=== PATIENT | female | born 1955 | race Caucasian/White ===

== ENCOUNTER 2018-09-12 07:27 | Emergency (ER) | payer MEDICARE, MEDICAID ==
[~2018-09-12] VITALS: Ht 167.6 cm; Wt 69.1 kg
[~2018-09-12 07:27] MED LIST: ALDACTONE50 MG PO; AMITRIPTYLINE H50 MG PO; CARAFATE1 G/10 ML PO; CELEXA40 MG PO; DURAGESIC1 PATCH .3 TRANSDERM; DURAGESIC1 PATCH .7 TRANSDERM; GABAPENTIN100 MG PO; LEVOTHYROXINE50 MCG PO; MOBIC7.5 MG PO; MORPHINE IMMEDI30 M1 PO; OMEPRAZOLE20 M1 PO; OMEPRAZOLE40 MG PO; ROPINIROLE HCL2 MG PO; TENORMIN50 MG PO; VICTOZA0.6 MG/0.1 SQ; XANAX0.5 MG PO; ZANTAC150 MG PO
[2018-09-12 07:31] VITALS: Ht 167.6 cm; Wt 69.1 kg
[2018-09-12 08:56] LABS: BASOPHILS 0.3 % (0-2); EOSINOPHILS 1.5 % (0-7); HEMATOCRIT 40.3 % (36.0-48.0); HEMOGLOBIN 14.3 g/dL (12-16); IMMATURE GRANULOCYTES 0.3 % (0-5); LYMPHOCYTES 19.1 % (15-50); MCH 31.2 pg (26.0-34.0); MCHC 35.5 g/dL (31.0-37.0); MCV 87.8 fL (80.0-100.0); MEAN PLATELET VOLUME 9.4 fL (7.4-10.4); MONOCYTES 8.5 % (2-11); NEUTROPHILS 70.3 % (40-80); PLATELET COUNT 193 10x3/uL (130-400); RBC 4.59 10x6/uL (4.00-5.40); RDW 13.7 % (11.5-14.5); WBC 9.2 10x3/uL (4.8-10.8)
[2018-09-12 09:12] LABS: ALBUMIN 3.5 g/dL (3.4-5.0); ALKALINE PHOSPHATASE 112 U/L (46-116); ALT (SGPT) 36 U/L (10-68); BILIRUBIN - TOTAL 0.43 mg/dL (0.2-1.3); CALC OSMOLALITY 281 mosm/kg (275-300); CALCIUM 9.1 mg/dL (8.5-10.1); CARBON DIOXIDE 27.1 mmol/L (21.0-32.0); CHLORIDE - SERUM 106 mmol/L (98-107); CREATININE - SERUM 1.2 mg/dL (0.6-1.3); GLUCOSE 93 mg/dL (74-106); PROTEIN - SERUM 6.7 g/dL (6.4-8.2); SODIUM 140 mmol/L (136-145); UREA NITROGEN 20 mg/dL (7-18); eGFR NON AFRICAN AMERICAN 48 mL/min (90-120)
[2018-09-12 09:14] LABS: AMYLASE - SERUM 65 U/L (25-115); LIPASE 264 U/L (73-393); TROPONIN-I < 0.017 ng/mL (0.000-0.060)
[2018-09-12 09:16] LABS: APPEARANCE CLEAR (CLEAR); BILIRUBIN NEGATIVE (NEGATIVE); COLOR YELLOW (YELLOW); GLUCOSE NEGATIVE (NEGATIVE); KETONE NEGATIVE (NEGATIVE); NITRITE NEGATIVE (NEGATIVE); PROTEIN NEGATIVE (NEGATIVE); SPECIFIC GRAVITY 1.015 (1.005-1.020); UROBILINOGEN NORMAL (NORMAL)
[2018-09-12 09:20] LABS: MUCUS <1+ /lpf (NONE SEEN); RED CELLS - URINE 0-5 /hpf (0-5)
[2018-09-12 09:21] LABS: BACTERIA FEW /hpf (NONE SEEN); WHITE CELLS - URINE 0-5 /hpf (0-5)
[2018-09-12 11:02] VITALS: BP 145/74
== END 2018-09-12 12:40 | disposition other institution (70) ==
LOC: D.ER 07:27
PROVIDERS: Family Medicine
DX: N13.4 Hydroureter (principal); E27.8 Other specified disorders of adrenal gland; D49.0 Neoplasm of unspecified behavior of digestive system

== ENCOUNTER 2018-11-30 11:15 | Emergency (ER) | payer MEDICARE, MEDICAID ==
[~2018-11-30] VITALS: Ht 167.6 cm; Wt 68.2 kg
[2018-11-30 11:20] VITALS: Ht 167.6 cm; Wt 68.2 kg
[2018-11-30] MEDS ORDERED: HYDROCODON-ACE1 EA10 PO (11:21)
[2018-11-30] MEDS ORDERED: SULFAMETHOXAZOL1 TA2 PO (12:02)
[2018-11-30 12:39] VITALS: BP 156/79
== END 2018-11-30 12:40 | disposition home or self-care (01) ==
LOC: D.ER 11:15
DX: L73.2 Hidradenitis suppurativa (principal)

== ENCOUNTER 2019-02-15 10:27 | Emergency (ER) | payer MEDICARE, MEDICAID ==
[~2019-02-15] VITALS: Ht 167.6 cm; Wt 74.7 kg
[~2019-02-15 10:27] MED LIST changes: +HYDROCODON-ACE1 EA10 PO; +SULFAMETHOXAZOL1 TA2 PO
[2019-02-15 10:31] VITALS: Ht 167.6 cm; Wt 74.7 kg
[2019-02-15] MEDS ORDERED: VICTOZA0.6 MG/0.1 SQ (10:36)
[2019-02-15] MEDS ORDERED: DOXYCYCLINE HY100 M2 PO (11:08)
[2019-02-15 11:45] VITALS: BP 137/64
== END 2019-02-15 11:46 | disposition home or self-care (01) ==
LOC: D.ER 10:27
DX: L03.90 Cellulitis, unspecified (principal); E11.9 Type 2 diabetes mellitus without complications; I10 Essential (primary) hypertension; E07.9 Disorder of thyroid, unspecified; Z72.0 Tobacco use

== ENCOUNTER → 2019-08-05 21:31 | Outpatient (CLI) | payer MEDICARE, MEDICAID ==
[2019-02-15 10:31] VITALS: BMI 26.6
[~2019-08-05 21:31] MED LIST changes: +DOXYCYCLINE HY100 M2 PO
== END | disposition home or self-care (01) ==
LOC: D.MAMMO 11:30
PROVIDERS: ATTEND Family Medicine
DX: Z12.31 Encounter for screening mammogram for malignant neoplasm of breast (principal)

== ENCOUNTER → 2019-08-21 12:40 | Outpatient (CLI) | payer MEDICARE, MEDICAID ==
[2019-02-15 10:31] VITALS: BMI 26.6
== END | disposition home or self-care (01) ==
LOC: D.US 12:40
PROVIDERS: ATTEND Family Medicine
DX: N63.25 Unspecified lump in the left breast, overlapping quadrants (principal); N63.13 Unspecified lump in the right breast, lower outer quadrant

== ENCOUNTER 2019-09-08 08:53 | Emergency (ER) | payer MEDICARE, MEDICAID ==
[~2019-09-08] VITALS: Ht 167.6 cm; Wt 78.6 kg
[2019-09-08 09:01] VITALS: Ht 167.6 cm; Wt 78.6 kg
[2019-09-08] MEDS ORDERED: ADVAIR 250-501 EAC1 INH (09:04)
[2019-09-08 09:31] LABS: ANION GAP 10.1 mmol/L (8-16); CARBON DIOXIDE 27.1 mmol/L (21.0-32.0); CREATININE - SERUM 1.6 mg/dL (0.6-1.3); POTASSIUM - SERUM 4.2 mmol/L (3.5-5.1)
[2019-09-08 09:34] LABS: BASOPHILS 0.5 % (0-2); EOSINOPHILS 4.6 % (0-7); HEMATOCRIT 46.8 % (36.0-48.0); HEMOGLOBIN 16.5 g/dL (12-16); IMMATURE GRANULOCYTES 0.4 % (0-5); LYMPHOCYTES 24.6 % (15-50); MCH 31.9 pg (26.0-34.0); MCHC 35.3 g/dL (31.0-37.0); MCV 90.3 fL (80.0-100.0); MEAN PLATELET VOLUME 9.7 fL (7.4-10.4); NEUTROPHILS 61.9 % (40-80); PLATELET COUNT 169 10x3/uL (130-400); RBC 5.18 10x6/uL (4.00-5.40); RDW 13.3 % (11.5-14.5); WBC 8.5 10x3/uL (4.8-10.8)
[2019-09-08 09:37] LABS: ALBUMIN 3.8 g/dL (3.4-5.0); BILIRUBIN - TOTAL 0.28 mg/dL (0.2-1.3); PROTEIN - SERUM 6.8 g/dL (6.4-8.2)
[2019-09-08 10:19] LABS: BILIRUBIN NEGATIVE (NEGATIVE); GLUCOSE NEGATIVE (NEGATIVE); KETONE NEGATIVE (NEGATIVE); NITRITE POSITIVE (NEGATIVE); SPECIFIC GRAVITY 1.015 (1.005-1.020); UROBILINOGEN NORMAL (NORMAL)
[2019-09-08 10:20] LABS: BACTERIA MANY /hpf (NEGATIVE); EPITHELIAL CELLS 0-5 /hpf (0-5); RED CELLS - URINE OCC /hpf (0-5)
[2019-09-08] MEDS ORDERED: KEFLEX500 MG PO (11:51)
[2019-09-08 13:50] VITALS: BP 144/61
== END 2019-09-08 13:51 | disposition home or self-care (01) ==
LOC: D.ER 08:53
PROVIDERS: Family Medicine
DX: N39.0 Urinary tract infection, site not specified (principal); K59.00 Constipation, unspecified; E86.0 Dehydration; R10.32 Left lower quadrant pain; M54.5 Low back pain

== ENCOUNTER 2019-12-01 07:23 | Emergency (ER) | payer MEDICARE, MEDICAID ==
[~2019-12-01] VITALS: Ht 167.6 cm; Wt 79.1 kg
[~2019-12-01 07:23] MED LIST changes: +ADVAIR 250-501 EAC1 INH; +KEFLEX500 MG PO
[2019-12-01 07:27] VITALS: Ht 167.6 cm; Wt 79.1 kg
[2019-12-01 08:23] LABS: BASOPHILS 0.5 % (0-2); EOSINOPHILS 4.5 % (0-7); HEMATOCRIT 45.5 % (36.0-48.0); IMMATURE GRANULOCYTES 0.5 % (0-5); LYMPHOCYTES 29.7 % (15-50); MCH 31.6 pg (26.0-34.0); MCHC 35.2 g/dL (31.0-37.0); MCV 89.7 fL (80.0-100.0); MEAN PLATELET VOLUME 9.6 fL (7.4-10.4); MONOCYTES 9.2 % (2-11); NEUTROPHILS 55.6 % (40-80); PLATELET COUNT 149 10x3/uL (130-400); RBC 5.07 10x6/uL (4.00-5.40); RDW 13.4 % (11.5-14.5); WBC 6.6 10x3/uL (4.8-10.8)
[2019-12-01 08:36] LABS: CALC OSMOLALITY 282 mosm/kg (275-300); CARBON DIOXIDE 24.7 mmol/L (21.0-32.0); CHLORIDE - SERUM 104 mmol/L (98-107); CREATININE - SERUM 1.3 mg/dL (0.6-1.3); GLUCOSE 174 mg/dL (74-106); POTASSIUM - SERUM 3.9 mmol/L (3.5-5.1); SODIUM 138 mmol/L (136-145); UREA NITROGEN 22 mg/dL (7-18); eGFR NON AFRICAN AMERICAN 44 mL/min (90-120)
[2019-12-01 08:37] LABS: APTT 29.4 SECONDS (22.8-39.4); INR 0.95 (0.85-1.17); PROTIME 12.6 SECONDS (11.6-15.0)
[2019-12-01 08:53] LABS: ALBUMIN 3.8 g/dL (3.4-5.0); ALKALINE PHOSPHATASE 109 U/L (30-120); ALT (SGPT) 41 U/L (10-68); AMYLASE - SERUM 61 U/L (25-115); BILIRUBIN - TOTAL 0.35 mg/dL (0.2-1.3); CKMB 2.1 U/L (0.0-3.6); CREATINE KINASE 88 UL (21-215); LIPASE 168 U/L (73-393); PROTEIN - SERUM 6.9 g/dL (6.4-8.2); TROPONIN-I < 0.017 ng/mL (0.000-0.060)
[2019-12-01 09:39] LABS: BILIRUBIN NEGATIVE (NEGATIVE); KETONE NEGATIVE (NEGATIVE); NITRITE NEGATIVE (NEGATIVE); UROBILINOGEN NORMAL mg/dL (< 2)
[2019-12-01 09:40] LABS: BACTERIA MODERATE HPF (NONE SEEN); EPITHELIAL CELLS 0-5 /hpf (0-5)
[2019-12-01] MEDS ORDERED: IBUPROFEN800 MG PO (09:51)
[2019-12-01] MEDS ORDERED: CYCLOBENZAPRINE10 MG PO (09:51)
[2019-12-01] MEDS ORDERED: MACROBID100 MG PO (10:01)
[2019-12-01] MEDS ORDERED: KEFLEX500 MG PO (10:01)
[2019-12-01 10:39] VITALS: BP 172/76
== END 2019-12-01 10:35 | disposition home or self-care (01) ==
LOC: D.ER 07:23
PROVIDERS: Family Medicine
DX: M25.511 Pain in right shoulder (principal); S46.911A Strain of unspecified muscle, fascia and tendon at shoulder and upper arm level, right arm, initial encounter; X58.XXXA Exposure to other specified factors, initial encounter; I10 Essential (primary) hypertension; E11.9 Type 2 diabetes mellitus without complications; J44.9 Chronic obstructive pulmonary disease, unspecified

== ENCOUNTER → 2019-12-08 08:11 | Outpatient (CLI) | payer MEDICARE, MEDICAID ==
[2019-12-01 07:27] VITALS: BMI 28.1
[~2019-12-08 08:11] MED LIST changes: +CYCLOBENZAPRINE10 MG PO; +IBUPROFEN800 MG PO; +MACROBID100 MG PO
== END | disposition home or self-care (01) ==
LOC: D.CT 08:00
PROVIDERS: ATTEND Orthopaedic Surgery
DX: R91.8 Other nonspecific abnormal finding of lung field (principal)

== ENCOUNTER → 2019-12-12 10:38 | Outpatient (CLI) | payer MEDICARE, MEDICAID ==
[2019-12-01 07:27] VITALS: BMI 28.1
== END | disposition home or self-care (01) ==
LOC: D.MRI 10:38
PROVIDERS: ATTEND Orthopaedic Surgery
DX: M75.121 Complete rotator cuff tear or rupture of right shoulder, not specified as traumatic (principal)